=== PATIENT | male | born 1990 | race Caucasian/White ===

== ENCOUNTER → 2022-10-17 | Emergency (ER) | payer SELFPAY ==
[~2022-10-17] VITALS: Ht 175.3 cm; Wt 81.6 kg
[~2022-10-17] MED LIST: LIDOCAINE 2% 20 ML MDV ONE; PHENYLEPHRINE 10 MG/ML VIAL IJ ONE; PHENYLEPHRINE 10 MG/ML VIAL ONE
--- NOTE | 2022-10-17 03:45 | NUR ---
BIBSELF FROM HOME C/O ERECTION X14 HRS. DIRECTOR OF COLLECTIONS USED TRIMIX. Pt is AAO X 4, breathing unlabored. Pt states this is the third time this happened. Pt attached to monitor and pulse ox. Awaiting MD [place]
--- NOTE | 2022-10-17 05:37 | NUR ---
Patient discharged to home in stable condition. Written and verbal after care instructions given. Patient verbalizes understanding of instruction. Pt ambulatory with a steady gait
[2022-10-17 05:38] VITALS: BP 134/77; TEMP 98.3; O2SAT 99
== END | disposition home or self-care (01) ==
LOC: ER 02:37
DX: N48.30 Priapism, unspecified (principal); Z60.2 Problems related to living alone
CPT/HCPCS: 54220; 99284; J2370; J3490